=== PATIENT | male | born 1995 | race Caucasian/White ===

== ENCOUNTER 2020-03-29 07:56 | Emergency (ER) | payer SELFPAY ==
[2020-03-29 08:09] VITALS: BP 104/60; PULSE 56; TEMP 98.1; BMI 21.7
--- NOTE | 2020-03-29 08:46 | PDOC ---
Suture Removal/Wound Check HPI - History of Present Illness Chief Complaint: Suture/Staple Removal (other) Stated Complaint: SUTURE REMOVAL Time Seen by Provider: 03/29/20 08:28 History Source: Yes: Patient Exam Limitations: Yes: No Limitations Treated at: Other ED Date of Last ED visit: 03/22/20 - Previous ED Treatment Type of procedure performed on last visit: Yes: Laceration Repair - Onset of Previous Treatment Comment:: 24 yo M presents for suture removal to R index finger. 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 Sutures were placed in another ED 1 week ago and he was told to f/u for removal. Denies pain, drainage, redness, swelling. Past History - Medical History Allergies/Adverse Reactions: Allergies Allergy/AdvReac Type Severity Reaction Status Date / Time No Known Allergies Allergy Verified 03/29/20 08:07 Home Medications: Ambulatory Orders NK [No Known Home Medication] 03/29/20 - Psycho-Social/Smoking History Smoking History: Never smoked - Substance Abuse Hx (Audit-C & DAST Scrn) How often the patient has a drink containing alcohol: Never Score: In Men: 4 or > Positive; In Women: 3 or > Positive: 0 Screen Result (Pos requires Nsg. Audit-10AR): Negative *Review of Systems - Review of Systems Able to Perform ROS?: Yes GENERAL/CONSTITUTIONAL: No fever or chills. No weakness. EXTREMITIES: R index finger with sutures in place, no drainage, no redness SKIN: No rash. *Physical Exam - Vital Signs Last Vital Signs Temp Pulse Resp BP Pulse Ox 98.1 F 56 L 14 104/60 100 03/29/20 08:07 03/29/20 08:07 03/29/20 08:07 03/29/20 08:07 03/29/20 08:07 - Physical Exam GENERAL: Awake, alert, and fully oriented, in no acute distress EXTREMITIES: R index finger with sutures in place, no surrounding cellulitis. Wound closed. Normal range of motion, no edema. No clubbing or cyanosis. No cords, erythema, or tenderness Medical Decision Making - Medical Decision Making Sutures removed using forceps and #11 blade. Patient tolerated well. Steri- strips placed. Stable for DC home. Discharge - Discharge Information Problems reviewed: Yes Clinical Impression/Diagnosis: Encounter for removal of sutures Condition: Stable Disposition: HOME - Follow up/Referral - Patient Discharge Instructions Patient Printed Discharge Instructions: DI for Suture Removal - Post Discharge Activity Work/Back to School Note: Back to Work
== END 2020-03-29 08:50 | disposition home or self-care (01) ==
LOC: JER 07:56
DX: S61.210A Laceration without foreign body of right index finger without damage to nail, initial encounter (principal); Z48.02 Encounter for removal of sutures
CPT/HCPCS: 99281-25

== ENCOUNTER 2022-06-01 22:25 | Emergency (ER) | payer OTHER ==
[2022-06-01 22:32] VITALS: BP 138/84; PULSE 75; RESP 14; TEMP 98.2; BMI 22.8
[2022-06-01] MEDS ORDERED: ACETAMINOPHEN 1000 MG/100 ML BAG IVPB ONE (22:38)
[2022-06-01] MEDS ORDERED: SODIUM CHLORIDE 1,000 ML IV STA (22:38)
[2022-06-01] MEDS ORDERED: MAG HYDROX/AL HYDROX/SIMETH 30 ML UNIT-DOSE CUP PO ONE (22:38)
[2022-06-01] MEDS ORDERED: FAMOTIDINE 20 MG/50 ML IVPB 20 MG/50 ML MG IVPB ONE ×2 (22:38→23:02)
[2022-06-01] MEDS ORDERED: MAG HYDROX/AL HYDROX/SIMETH 30 ML UNIT-DOSE CUP ONE (22:44)
[2022-06-01] MEDS ORDERED: ACETAMINOPHEN INJECTION 100 ML IVPB ONE (22:44)
[2022-06-01 23:06] LABS: HEMATOCRIT 35.6 % (35.4-49); HEMOGLOBIN 12.7 G/dL (11.7-16.9); MCH 30.3 pg (25.7-33.7); MCHC 35.5 g/dl (32.0-35.9); MEAN CELL VOLUME 85.4 fl (80-96); MEAN PLT VOLUME 6.8 fl (7.5-11.1); PLATELET COUNT 204.5 10^3/uL (134-434); RBC 4.17 10^6/uL (4.00-5.60); RDW 13.6 % (11.9-15.9); WHITE BLOOD COUNT 5.4 10^3/uL (4.0-10.8)
[2022-06-01 23:21] LABS: PLATELET ESTIMATE ADEQUATE
[2022-06-01 23:22] LABS: ALBUMIN 4.3 g/dl (3.4-5.0); BILIRUBIN,TOTAL 0.8 mg/dl (0.2-1); CALCIUM 9.2 mg/dl (8.5-10); CREATININE 0.7 mg/dl (0.55-1.3); TOT PROT 7.3 g/dl (6.4-8.2)
== END 2022-06-02 00:46 | disposition home or self-care (01) ==
LOC: FER 22:25
PROC: 3E033GC Introduction of Other Therapeutic Substance into Peripheral Vein, Percutaneous Approach (ICD-10-PCS; principal; 2022-06-01)
DX: R10.13 Epigastric pain (principal)
CPT/HCPCS: 36415; 80053; 83690; 85027; 99284-25